=== PATIENT | female | born 1960 | race Two or more races ===

== ENCOUNTER → 2016-08-12 | Day surgery (SDC) | payer MEDICAID ==
[~2016-08-12] VITALS: Ht 30.5 cm; Wt 0.5 kg
[~2016-08-12] MED LIST: ASPI-231 PO; BACITRACIN 50000 UNIT XX SCH; BACITRACIN INJ 50000 UNIT VIAL IM ONE; BACITRACIN INJ 50000 UNIT VIAL ONE; CARV12.544 PO; CARVEDILOL 12.5 MG TAB PO ONE; DOXYCYCLINE 100 MG TAB/CAP PO ONE; LIDOCAINE 2%HCL (LOCAL ANESTH.) INJ 20ML MDV ONE; LOSA25TA8; MIDAZOLAM HCL 1MG/1ML-2 ML VIAL ONE; ONDANSETRON HCL 4 MG/2 ML VIAL IM ONE; ONDANSETRON HCL 4 MG/2 ML VIAL ONE; SILD20TA PO; SILD20TA12 PO; SIMV-13 PO; VANCOMYCIN 1GM/250ML D5W 0 ML IV ONE; VANCOMYCIN HCL 1000 MG VL IR ONE; VANCOMYCIN HCL 1000 MG VL ONE; ceFAZolin 1GM 2 GM in D5W 5% 100 ML IV ONE; ceFAZolin 1GM/50ML D5W 100 ML IV ONE; fentaNYL CITRATE 100 MCG/2 ML VL ONE
== END | disposition home or self-care (01) ==
LOC: CATH 06:29
PROVIDERS: ATTEND Specialist
DX: I42.9 Cardiomyopathy, unspecified (principal); B19.10 Unspecified viral hepatitis B without hepatic coma; I51.9 Heart disease, unspecified
CPT/HCPCS: 33264; C1882; J3010; J3370; J7030; 71010; 99152; J0690; J2250; J2405; J7060

== ENCOUNTER 2022-06-09 06:47 | Day surgery (SDC) | payer MEDICAID ==
[~2022-06-09] VITALS: Ht 157.5 cm; Wt 80.3 kg
[~2022-06-09 06:47] MED LIST changes: -ASPI-231 PO; +ASPI1TAB20 PO; +ATOR40TA52 PO; -BACITRACIN 50000 UNIT XX SCH; -BACITRACIN INJ 50000 UNIT VIAL IM ONE; -BACITRACIN INJ 50000 UNIT VIAL ONE; -CARV12.544 PO; +CARV6.2551 PO; -CARVEDILOL 12.5 MG TAB PO ONE; +DOCU-94 PO; -DOXYCYCLINE 100 MG TAB/CAP PO ONE; +HYDR-3682 PO; -LIDOCAINE 2%HCL (LOCAL ANESTH.) INJ 20ML MDV ONE; +LORA10TA6 PO; +LOSA25TA2; -LOSA25TA8; -MIDAZOLAM HCL 1MG/1ML-2 ML VIAL ONE; -ONDANSETRON HCL 4 MG/2 ML VIAL IM ONE; -ONDANSETRON HCL 4 MG/2 ML VIAL ONE; -SILD20TA PO; -SILD20TA12 PO; -SIMV-13 PO; -VANCOMYCIN 1GM/250ML D5W 0 ML IV ONE; -VANCOMYCIN HCL 1000 MG VL IR ONE; -VANCOMYCIN HCL 1000 MG VL ONE; -ceFAZolin 1GM 2 GM in D5W 5% 100 ML IV ONE; -ceFAZolin 1GM/50ML D5W 100 ML IV ONE; -fentaNYL CITRATE 100 MCG/2 ML VL ONE
[2022-06-09] MEDS ORDERED: VANCOMYCIN 1GM/250ML 250 ML IV ONE (07:51)
[2022-06-09] MEDS ORDERED: LIDOCAINE 2%HCL (LOCAL ANESTH.) INJ 20ML MDV ONE (07:56)
[2022-06-09] MEDS ORDERED: VANCOMYCIN HCL 1000 MG VL ONE (07:58)
[2022-06-09] MEDS ORDERED: MIDAZOLAM HCL 2MG/2ML 2ml VIAL (1mg/ml) ONE (07:59)
[2022-06-09] MEDS ORDERED: fentaNYL CITRATE 100 MCG/2 ML VL ONE (07:59)
[2022-06-09] MEDS ORDERED: ceFAZolin 1GM VL ONE ×2 (08:24→08:25)
[2022-06-09 09:15] VITALS: BP 153/87
[2022-06-09 09:30] VITALS: BP 148/80
[2022-06-09 09:45] VITALS: BP 144/82
[2022-06-09 10:00] VITALS: BP 141/65
[2022-06-09 10:30] VITALS: BP 124/72
[2022-06-09 11:00] VITALS: BP 125/77
== END 2022-06-09 11:25 | disposition home or self-care (01) ==
LOC: CATH 06:47
PROVIDERS: ATTEND Specialist
DX: Z45.02 Encounter for adjustment and management of automatic implantable cardiac defibrillator (principal); I42.8 Other cardiomyopathies; I11.0 Hypertensive heart disease with heart failure; I50.9 Heart failure, unspecified
CPT/HCPCS: 33264; C1882; J0690; J2250; J3010; J3370; J7030; U0003; 99152; 99153